=== PATIENT | male | born 1945 | race Caucasian/White ===

== ENCOUNTER 2017-12-07 11:33 | Inpatient (IN) ==
[2017-12-07] MEDS ORDERED: Acetaminophen 325 MG Tablet ONE (22:26)
[2017-12-08] MEDS ORDERED: Naloxone Inj 0.4 MG/ML Vial IV.PUSH PRN (00:01)
[2017-12-08] MEDS ORDERED: Acetaminophen 325 MG Tablet PO PRN (00:01)
[2017-12-08] MEDS: Piperacil/Tazo 3.375 GM Premix 50 ML IV.SIG SCH ×4 (02:45→22:11)
[2017-12-08 03:07] LABS: Troponin I 0.15 ng/mL (0.02-0.05)
[2017-12-08 03:19] LABS: CKMB Percent 0.1 % (0.0-4.0); Creatine Kinase MB 1.3 ng/mL (0.5-3.6)
[2017-12-08 06:01] LABS: Baso % (Auto) 0.2 % (0.0-2.0); Eos % (Auto) 0.8 % (0.0-4.0); Hematocrit 39.7 % (39.0-51.0); Hemoglobin 13.1 gm/dL (13.0-17.0); Lymph # (Auto) 0.7 th/mm3 (1.0-4.8); Lymph % (Auto) 11.8 % (9.0-44.0); Mean Corpuscular HGB Conc 33.1 % (32.0-36.0); Mean Corpuscular Volume 87.5 fL (80.0-100.0); Mono # (Auto) 0.6 th/mm3 (0.0-0.9); Mono % (Auto) 9.4 % (0.0-8.0); Neut # (Auto) 4.7 th/mm3 (1.8-7.7); Neut % (Auto) 77.8 % (16.0-70.0); Platelet Count 104 th/mm3 (150-450); Red Blood Count 4.54 mil/mm3 (4.50-5.90)
[2017-12-08 06:35] LABS: Carbon Dioxide 27.2 meq/L (21.0-32.0); Potassium 4.3 meq/L (3.5-5.1)
[2017-12-08] MEDS: Metoprolol Tartrate 25 MG Tablet PO SCH ×2 (08:37→22:11)
[2017-12-08] MEDS: Pantoprazole Sodium 20 MG DR Tablet PO SCH (08:38)
[2017-12-08] MEDS: Senna/Docusate Sodium 8.6/50 MG Tablet PO SCH ×2 (08:39→22:11)
--- NOTE | 2017-12-08 09:40 | XR ---
EXAM DATE: 12/08/2017 9:34 AM EDT AGE/SEX: 72 years / Male INDICATIONS: Previous fever. CLINICAL DATA: This is the patient's subsequent encounter. Patient reports that signs and symptoms h ave been present for 2 days and indicates a pain score of 0/10. MEDICAL/SURGICAL HISTORY: None. CABG. COMPARISON: No prior exams available for comparison. FINDINGS: Sternal wires from previous bypass are noted. Mild cardiomegaly. No infiltrate, pneumothorax or failu re. CONCLUSION: Mild compensated cardiomegaly, history of bypass. Electronically signed by: Zhou Smith MD 12/08/2017 9:39 AM EDT
--- NOTE | 2017-12-08 10:06 | P.HPIM ---
<Jolanta Luke E - Last Filed: 12/09/17 10:10> History of Present Illness Primary Care Physician: Joni Henley Chief Complaint: Fever History of Present Illness: Mr. Hartley is a 72 y/o male with CAD s/p CABG, BPH, HTN, Hyperlipidemia, GERD, and NATHAN. He presented to the ED in [place] on 12/07/17 with complaints of fever and low blood pressure. Patient was recently discharged from [facility] on 11/26 after having an episode of urinary urinary retention. He was seen by Dr. Suarez and had Rojas cath placed in the ED with noted dark urine output. He reportedly followed up with Dr. Medina and the Rojas was removed 3 days ago. Pt reports that he started having fevers at home on 12/06 with T-max of 103, with associated diaphoresis. He denies any chest pain, shortness of breath, headache , blurred vision, or any neurological symptoms. Denies any abdominal pain or diarrhea. Patient denies any dysuria, hematuria, increased urinary frequency, nausea or vomiting. In the ED in [place] the pt was noted to be hypotensive with tachycardia. He had an elevated lactic acid of 3.4. His WBC count was normal but left shift was noted. He had an elevated BUN/creatinine of 19/2 compared to previous labs on 11/25 where his BUN/creatinine was 26/1.4. Patient was given 2 L of IV fluid bolus, Vanco/Zosyn renal dose in the ED. His blood pressure responded to IV fluids without need for pressors. Blood cultures drawn in the ED at [place] with one out of four cultures growing gram negative rods. His preliminary urine culture is growing gram negative rods as well. - Diagnosis (1) Sepsis (2) Bacteremia (3) UTI (urinary tract infection) (4) Hypotension (5) HTN (hypertension) (6) CAD (coronary artery disease) (7) GERD (gastroesophageal reflux disease) (8) BPH (benign prostatic hyperplasia) Inpatient Certification: I certify that the inpatient services were ordered in accordance with Medicare regulations governing the order. This includes certification that hospital inpatient services are reasonable and necessary and in the case of services not specified as inpatient-only under 42 CFR 419.22(n), that they are appropriately provided as inpatient services in accordance to with the 2-midnight benchmark under 43 CFR 412.3(e) Estimated Total Length of Stay (Days): 3 Plans for Post Hospital Care: Not yet determined Review of Systems Constitutional: Reports fever(s), Reports night sweats Cardiovascular: Denies chest pain, Denies shortness of breath Respiratory: Denies cough, Denies shortness of breath with activity Gastrointestinal: Denies abdominal pain, Denies change in bowel habits, Denies nausea, Denies vomiting Genitourinary: Denies painful urination, Denies urinary frequency, Denies urinary urgency Musculoskeletal: Denies back pain, Denies neck pain PMF - History History Provided By: Patient - Medical History Medical History: Medical History (Last Updated 12/08/17 @ 10:01 by RAYSA Montes) BPH (benign prostatic hyperplasia) CAD (coronary artery disease) GERD (gastroesophageal reflux disease) HTN (hypertension) Hyperlipidemia Osteoarthritis - Surgical History Surgical History: Surgical History (Last Updated 12/08/17 @ 10:02 by RAYSA Montes) History of tonsillectomy Hx of knee surgery S/P CABG x 2 S/P TURP - Family History Family History: Family History (Last Updated 12/08/17 @ 10:03 by RAYSA Montes) Other CHF (congestive heart failure) - Tobacco History Second Hand Smoke Exposure: No Tobacco Use In Past 30 Days: No Smoking Status: Never smoker - Alcohol History How Often Do You Have a Drink Containing Alcohol: Monthly or less - Substance Use History Substance History: No History of Abuse Medications and Allergies Allergies Allergy/AdvReac Type Severity Reaction Status Date / Time No Known Allergies Allergy Unverified 12/07/17 11:58 Home Medications Medication Instructions Recorded Confirmed Type aspirin 81 mg PO DAILY 12/08/17 12/08/17 History clopidogrel [Plavix] 75 mg PO DAILY 12/08/17 12/08/17 History omeprazole magnesium [Prilosec OTC] 20 mg PO DAILY 12/08/17 12/08/17 History rosuvastatin [Crestor] 20 mg PO DAILY 12/08/17 12/08/17 History Active Medications: Active Medications Acetaminophen (Tylenol) 650 mg PO Q4H PRN PRN Reason: TEMP > 100.4 Al Hydroxide/Mg Hydroxide (Milk Of Magnesia Liq) 30 ml PO Q12H PRN PRN Reason: MILD CONSTIPATION Aspirin (Ecotrin) 81 mg PO DAILY [facility] Last Admin: 12/08/17 08:37 Dose: 81 mg Atorvastatin Calcium (Lipitor) 40 mg PO DAILY [facility] Last Admin: 12/08/17 08:39 Dose: 40 mg Clonidine HCl (Catapres) 0.2 mg PO Q6H PRN PRN Reason: SYS BP GREATER THAN 160 MMHG Clopidogrel Bisulfate (Plavix) 75 mg PO DAILY [facility] Last Admin: 12/08/17 08:37 Dose: 75 mg Piperacillin/Tazobactam/Dextrose (Zosyn 3.375 Gm Premix) 50 mls @ 100 mls/hr IV.SIG Q6H [facility] Last Admin: 12/08/17 08:36 Dose: 100 mls/hr Metoprolol Tartrate (Lopressor) 25 mg PO BID [facility] Last Admin: 12/08/17 08:37 Dose: 25 mg Naloxone HCl (Narcan Inj) 0.4 mg IV.PUSH UNSCH PRN PRN Reason: SEE LABEL COMMENTS Ondansetron HCl (Zofran Inj) 4 mg IV.PUSH Q6H PRN PRN Reason: NAUSEA OR VOMITING Pantoprazole Sodium (Protonix) 20 mg PO DAILY [facility] Last Admin: 12/08/17 08:38 Dose: 20 mg Senna/Docusate Sodium (Di-Colace) 1 tab PO BID [facility] Last Admin: 12/08/17 08:39 Dose: 1 tab Sodium Chloride (Ns Flush) 2 ml IV.FLUSH BID [facility] Last Admin: 12/08/17 08:40 Dose: Not Given Sodium Chloride (Ns Flush) 2 ml IV.FLUSH PRN PRN PRN Reason: FLUSH AFTER USING IV ACCESS Tamsulosin HCl (Flomax) 0.4 mg PO DAILY [facility] Last Admin: 12/08/17 08:37 Dose: 0.4 mg Exam Vital signs: Vital Signs 12/08/17 00:00 12/08/17 01:00 12/08/17 02:00 Temperature 99.7 F H Pulse Rate 86 78 77 Respiratory Rate 22 Blood Pressure 114/58 L Pulse Oximetry 97 12/08/17 03:00 12/08/17 04:00 12/08/17 05:00 Temperature 97.8 F Pulse Rate 64 68 64 Respiratory Rate 18 Blood Pressure 90/53 L Pulse Oximetry 97 12/08/17 06:00 12/08/17 06:34 Temperature Pulse Rate 60 60 Respiratory Rate Blood Pressure Pulse Oximetry Intake & Output 12/07/17 12/08/17 12/08/17 18:59 06:59 18:59 Intake Total 530 / 530 Output Total 600 / 600 Balance -70 / -70 Weight 110.8 kg Intake: IV 50 / 50 Zosyn 3.375 GM Premix 50 ML @ 50 / 50 100 mls/hr IV.SIG Q6H KENIA Rx#: [id number] Oral 480 / 480 Output: Urine 600 / 600 Narrative: GENERAL: NAD, AAOx3 SKIN: Warm and dry. HEAD: Normocephalic. No scleral icterus. No injection or drainage. NECK: Supple, trachea midline. No JVD or lymphadenopathy. CARDIOVASCULAR: Regular rate and rhythm without murmurs, gallops, or rubs. RESPIRATORY: Breath sounds equal bilaterally. No accessory muscle use. GASTROINTESTINAL: Abdomen soft, non-tender, nondistended. MUSCULOSKELETAL: No cyanosis, or edema. BACK: Nontender without obvious deformity. No CVA tenderness. Results - Labs CBC & Chem 7: 12/09/17 05:47 12/09/17 05:47 Labs: Short CBC 12/08/17 Range/Units 04:40 WBC 6.0 (4.0-11.0) th/mm3 Hgb 13.1 (13.0-17.0) gm/dL Hct 39.7 (39.0-51.0) % Plt Count 104 L (150-450) th/mm3 BMP 12/08/17 04:40 Sodium 141 Potassium 4.3 Chloride 107 Carbon Dioxide 27.2 BUN 23 H Creatinine 1.82 H Calcium 8.0 L Cardiac Enzymes 12/08/17 Range/Units 02:30 Total Creatine Kinase 958 H (39-308) U/L CK-MB (CK-2) 1.3 (0.5-3.6) ng/mL Troponin I 0.15 H (0.02-0.05) ng/mL - Imaging Impressions Chest X-Ray 12/08/17 00:00 CONCLUSION: Mild compensated cardiomegaly, history of bypass. Caprini VTE Risk Assessment Caprini VTE Risk Assessment: Moderate/High Risk (score >= 2) Caprini Risk Assessment Model: Point Value = 1 Point Value = 2 Point Value = 3 Point Value = 5 Age 41-60 Minor surgery BMI > 25 kg/m2 Swollen legs Varicose veins or History of unexplained or recurrent spontaneous Oral contraceptives or hormone replacement Sepsis (< 1 month) Serious lung disease, including pneumonia (< 1 month) Abnormal pulmonary function Acute myocardial infarction Congestive heart failure (< 1 month) History of inflammatory bowel disease Medical patient at bed rest Age 61-74 Arthroscopic surgery Major open surgery (> 45 min) Laparoscopic surgery (> 45 min) Malignancy Confined to bed (> 72 hours) Immobilizing plaster cast Central venous access Age >= 75 History of VTE Family history of VTE Factor V Leiden Prothrombin 26560R Lupus anticoagulant Anticardiolipin antibodies Elevated serum homocysteine Heparin-induced thrombocytopenia Other congenital or acquired thrombophilia Stroke (< 1 month) Elective arthroplasty Hip, pelvis, or leg fracture Acute spinal cord injury (< 1 month) Prophylaxis Regimen: Total Risk Factor Score Risk Level Prophylaxis Regimen 0-1 Low Early ambulation 2 Moderate Order ONE of the following: *Sequential Compression Device (SCD) *Heparin 5000 units SQ BID 3-4 Higher Order ONE of the following medications: *Heparin 5000 units SQ TID *Enoxaparin/Lovenox 40 mg SQ daily (WT < 150 kg, CrCl > 30 mL/min) *Enoxaparin/Lovenox 30 mg SQ daily (WT < 150 kg, CrCl > 10-29 mL/min) *Enoxaparin/Lovenox 30 mg SQ BID (WT < 150 kg, CrCl > 30 mL/min) AND/OR *Sequential Compression Device (SCD) 5 or more Highest Order ONE of the following medications: *Heparin 5000 units SQ TID (Preferred with Epidurals) *Enoxaparin/Lovenox 40 mg SQ daily (WT < 150 kg, CrCl > 30 mL/min) *Enoxaparin/Lovenox 30 mg SQ daily (WT < 150 kg, CrCl > 10-29 mL/min) *Enoxaparin/Lovenox 30 mg SQ BID (WT < 150 kg, CrCl > 30 mL/min) AND *Sequential Compression Device (SCD) Assessment and Plan - Assessment (1) Sepsis Code(s): A41.9 - Sepsis, unspecified organism Status: Acute Plan: - Pt is a 72 y/o male with CAD s/p CABG, BPH, HTN, Hyperlipidemia, GERD, and NATHAN. - He presented to the ED in [place] on 12/07/17 with complaints of fever and low blood pressure. Patient was recently discharged from [facility] on 11/26 after having an episode of urinary urinary retention. He was seen by Dr. Suarez and had Rojas cath placed in the ED with noted dark urine output. He reportedly followed up with Dr. Medina and the Rojas was removed 3 days ago. Pt reports that he started having fevers at home on 12/06 with T-max of 103, with associated diaphoresis. - In the ED in [place] the pt was noted to be hypotensive with tachycardia. - He had an elevated lactic acid of 3.4. - His WBC count was normal but left shift was noted. - He had an elevated BUN/creatinine of 19/2 compared to previous labs on 11/25 where his BUN/creatinine was 26/1.4. - Patient was given 2 L of IV fluid bolus, Vanco/Zosyn renal dose in the ED. His blood pressure responded to IV fluids without need for pressors. - Pt was transferred to [facility] [place] for further management - Blood cultures drawn in the ED at [place] with one out of four cultures growing gram negative rods. - His preliminary urine culture is growing gram negative rods as well. - Cont. IVF - Pt was continued on Zosyn - Await final urine and blood cultures - Supportive care - Further recs as the case develops - DVT prophylaxis with SCDs (2) Bacteremia Code(s): R78.81 - Bacteremia Status: Acute Plan: - See above (3) UTI (urinary tract infection) Code(s): N39.0 - Urinary tract infection, site not specified Status: Acute Plan: - See above (4) Hypotension Code(s): I95.9 - Hypotension, unspecified Status: Acute Plan: - Likely related to bacteremia and sepsis - Give gentle IVF - Monitor for any signs of volume overload - Hold home meds for now (5) HTN (hypertension) Code(s): I10 - Essential (primary) hypertension Status: Chronic Plan: - Hold home meds for hypotension (6) CAD (coronary artery disease) Code(s): I25.10 - Atherosclerotic heart disease of [place] coronary artery without angina pectoris Status: Chronic Plan: - Plavix and ASA resumed - Crestor resumed - Hold BB for now due to low BP - Pt had CE ordered in the ED which noted a mildly elevated troponin I of 0.12. This was trended, 0.19 -->0.15 -->0.10 - His total CK is noted to be elevated 278 -->510 -->958 --> 993 (7) GERD (gastroesophageal reflux disease) Code(s): K21.9 - Gastro-esophageal reflux disease without esophagitis Status: Chronic Plan: - PPI (8) BPH (benign prostatic hyperplasia) Code(s): N40.0 - Benign prostatic hyperplasia without lower urinary tract symptoms Status: Acute Plan: - Pt recently had issues with urinary retention which required a temporary rojas cath placement - This was reportedly removed 3 days ago - Pt follows with Dr. Medina <London Stauffer - Last Filed: 12/22/17 23:59> History of Present Illness Primary Care Physician: Joni Henley - Diagnosis (1) Sepsis (2) UTI (urinary tract infection) (3) Hypotension (4) HTN (hypertension) (5) CAD (coronary artery disease) (6) GERD (gastroesophageal reflux disease) (7) Bacteremia (8) BPH (benign prostatic hyperplasia) Inpatient Certification: I certify that the inpatient services were ordered in accordance with Medicare regulations governing the order. This includes certification that hospital inpatient services are reasonable and necessary and in the case of services not specified as inpatient-only under 42 CFR 419.22(n), that they are appropriately provided as inpatient services in accordance to with the 2-midnight benchmark under 43 CFR 412.3(e) [facility] - Medical History Medical History: Medical History (Last Updated 12/08/17 @ 10:01 by RAYSA Montes) BPH (benign prostatic hyperplasia) CAD (coronary artery disease) GERD (gastroesophageal reflux disease) HTN (hypertension) Hyperlipidemia Osteoarthritis - Surgical History Surgical History: Surgical History (Last Updated 12/08/17 @ 10:02 by RAYSA Montes) History of tonsillectomy Hx of knee surgery S/P CABG x 2 S/P TURP - Family History Family History: Family History (Last Updated 12/08/17 @ 10:03 by RAYSA Montes) Other CHF (congestive heart failure) Results - Labs CBC & Chem 7: 12/10/17 05:45 12/10/17 05:45 Caprini VTE Risk Assessment Caprini Risk Assessment Model: Point Value = 1 Point Value = 2 Point Value = 3 Point Value = 5 Age 41-60 Minor surgery BMI > 25 kg/m2 Swollen legs Varicose veins or History of unexplained or recurrent spontaneous Oral contraceptives or hormone replacement Sepsis (< 1 month) Serious lung disease, including pneumonia (< 1 month) Abnormal pulmonary function Acute myocardial infarction Congestive heart failure (< 1 month) History of inflammatory bowel disease Medical patient at bed rest Age 61-74 Arthroscopic surgery Major open surgery (> 45 min) Laparoscopic surgery (> 45 min) Malignancy Confined to bed (> 72 hours) Immobilizing plaster cast Central venous access Age >= 75 History of VTE Family history of VTE Factor V Leiden Prothrombin [id number] Lupus anticoagulant Anticardiolipin antibodies Elevated serum homocysteine Heparin-induced thrombocytopenia Other congenital or acquired thrombophilia Stroke (< 1 month) Elective arthroplasty Hip, pelvis, or leg fracture Acute spinal cord injury (< 1 month) Prophylaxis Regimen: Total Risk Factor Score Risk Level Prophylaxis Regimen 0-1 Low Early ambulation 2 Moderate Order ONE of the following: *Sequential Compression Device (SCD) *Heparin 5000 units SQ BID 3-4 Higher Order ONE of the following medications: *Heparin 5000 units SQ TID *Enoxaparin/Lovenox 40 mg SQ daily (WT < 150 kg, CrCl > 30 mL/min) *Enoxaparin/Lovenox 30 mg SQ daily (WT < 150 kg, CrCl > 10-29 mL/min) *Enoxaparin/Lovenox 30 mg SQ BID (WT < 150 kg, CrCl > 30 mL/min) AND/OR *Sequential Compression Device (SCD) 5 or more Highest Order ONE of the following medications: *Heparin 5000 units SQ TID (Preferred with Epidurals) *Enoxaparin/Lovenox 40 mg SQ daily (WT < 150 kg, CrCl > 30 mL/min) *Enoxaparin/Lovenox 30 mg SQ daily (WT < 150 kg, CrCl > 10-29 mL/min) *Enoxaparin/Lovenox 30 mg SQ BID (WT < 150 kg, CrCl > 30 mL/min) AND *Sequential Compression Device (SCD) Assessment and Plan - Assessment (1) Sepsis Code(s): A41.9 - Sepsis, unspecified organism Status: Acute (2) UTI (urinary tract infection) Code(s): N39.0 - Urinary tract infection, site not specified Status: Acute (3) Hypotension Code(s): I95.9 - Hypotension, unspecified Status: Acute (4) HTN (hypertension) Code(s): I10 - Essential (primary) hypertension Status: Chronic (5) CAD (coronary artery disease) Code(s): I25.10 - Atherosclerotic heart disease of [place] coronary artery without angina pectoris Status: Chronic (6) GERD (gastroesophageal reflux disease) Code(s): K21.9 - Gastro-esophageal reflux disease without esophagitis Status: Chronic (7) Bacteremia Code(s): R78.81 - Bacteremia Status: Acute (8) BPH (benign prostatic hyperplasia) Code(s): N40.0 - Benign prostatic hyperplasia without lower urinary tract symptoms Status: Acute - Attending Attestation Patient examined. Assessment and plan formulated with Jolanta Luke PA-C. I agree with the above.
[2017-12-08 10:24] LABS: Troponin I 0.1 ng/mL (0.02-0.05)
[2017-12-08 10:56] LABS: CKMB Percent 0.1 % (0.0-4.0); Creatine Kinase MB 1.4 ng/mL (0.5-3.6)
[2017-12-08] MEDS ORDERED: Bisacodyl 10 MG Supp RECTAL PRN (12:15)
[2017-12-08] MEDS: Sod Chloride 0.9% Inj 1,000 ML IV.CONT SCH ×2 (14:27→22:13)
--- NOTE | 2017-12-09 00:14 | ECG ---
Date Performed: 12/08/2017 Time Performed: 00:07:38 PTAGE: 72 years EKG: Sinus rhythm Inferior infarct - age undetermined Lateral T wave changes are nonspecific Abnormal ECG Since the PREVIOUS TRACING , no significant change noted DOCTOR: Adarsh Herrera Interpretating Date/Time 12/09/2017 00:12:07
[2017-12-09] MEDS: Piperacil/Tazo 3.375 GM Premix 50 ML IV.SIG SCH ×2 (04:18→09:00)
[2017-12-09 07:01] LABS: Baso % (Auto) 0.3 % (0.0-2.0); Eos # (Auto) 0.1 th/mm3 (0.0-0.4); Lymph # (Auto) 1.4 th/mm3 (1.0-4.8); Lymph % (Auto) 30.6 % (9.0-44.0); Mean Corpuscular HGB Conc 33.2 % (32.0-36.0); Mean Corpuscular Hemoglobin 28.9 pg (27.0-34.0); Mean Platelet Volume 10.9 fL (7.0-11.0); Mono # (Auto) 0.5 th/mm3 (0.0-0.9); Mono % (Auto) 11.1 % (0.0-8.0); Neut # (Auto) 2.6 th/mm3 (1.8-7.7); Platelet Count 104 th/mm3 (150-450); Red Blood Count 4.49 mil/mm3 (4.50-5.90); Red Cell Distribution Width 14.9 % (11.6-17.2); White Blood Count 4.7 th/mm3 (4.0-11.0)
[2017-12-09 07:41] LABS: Calcium 8.3 mg/dL (8.5-10.1); Potassium 4.3 meq/L (3.5-5.1)
[2017-12-09 08:02] LABS: CKMB Percent 0.1 % (0.0-4.0); Creatine Kinase MB 0.9 ng/mL (0.5-3.6)
--- NOTE | 2017-12-09 08:38 | P.PNIM ---
Subjective Interval history: Pt is overall feeling better Pt has been afebrile overnight but reports that he did wake up with some cold sweats last night He is eating and drinking without difficulty Pt HR overnight was in the 40's, sinus darryl and BP is low this morning. He reports that his BP typically is less than 120 systolically Physical Exam Vital signs: Vital Signs 12/08/17 11:00 12/08/17 12:00 12/08/17 13:00 Temperature Pulse Rate 61 54 L 69 Respiratory Rate Blood Pressure Pulse Oximetry 12/08/17 14:00 12/08/17 15:00 12/08/17 16:00 Temperature 99.0 F Pulse Rate 60 58 L 61 Respiratory Rate 16 Blood Pressure 123/69 Pulse Oximetry 96 12/08/17 17:00 12/08/17 18:00 12/08/17 20:00 Temperature 98.2 F Pulse Rate 67 67 63 Respiratory Rate 20 Blood Pressure 135/67 Pulse Oximetry 95 12/09/17 00:00 12/09/17 04:00 Temperature 98.6 F 97.5 F L Pulse Rate 55 L 58 L Respiratory Rate 20 18 Blood Pressure 129/71 123/53 L Pulse Oximetry 96 Intake & Output 12/08/17 12/09/17 12/09/17 18:59 06:59 18:59 Intake Total 740 / 740 50 / 50 Output Total 950 / 950 Balance -210 / -210 50 / 50 Weight 110.8 kg Intake: IV 100 / 100 50 / 50 Zosyn 3.375 GM Premix 50 ML @ 100 / 100 50 / 50 100 mls/hr IV.SIG Q6H KENIA Rx#: [id number] Oral 640 / 640 Output: Urine 950 / 950 Other: # Bowel Movements 1 Narrative: General: NAD, AAOx3 Chest: CTA Cardiac: Regular, darryl Abd: +BS, soft ND/NT Ext: No edema Results - Labs CBC & Chem 7: 12/10/17 05:45 12/10/17 05:45 Laboratory Results - last 24 hr 12/08/17 12/09/17 12/09/17 07:40 05:47 05:47 WBC 4.7 RBC 4.49 L Hgb 13.0 Hct 39.0 MCV 87.0 MCH 28.9 MCHC 33.2 RDW 14.9 Plt Count 104 L MPV 10.9 Neut % (Auto) 55.0 Lymph % (Auto) 30.6 [place] % (Auto) 11.1 H Eos % (Auto) 3.0 Baso % (Auto) 0.3 Neut # (Auto) 2.6 Lymph # (Auto) 1.4 [place] # (Auto) 0.5 Eos # (Auto) 0.1 Baso # (Auto) 0.0 WBC Differential . Differential Comment Auto diff final Sodium 142 Potassium 4.3 Chloride 108 H Carbon Dioxide 26.0 Anion Gap 8 BUN 18 Creatinine 1.51 H Estimated GFR 45 L Random Glucose 88 Calcium 8.3 L Total Creatine Kinase 993 H 757 H CK-MB (CK-2) 1.4 0.9 CK-MB (CK-2) % 0.1 0.1 Troponin I 0.10 H - Imaging Impressions Chest X-Ray 12/08/17 00:00 CONCLUSION: Mild compensated cardiomegaly, history of bypass. Assessment and Plan - Assessment (1) Sepsis Code(s): A41.9 - Sepsis, unspecified organism Status: Acute Plan: - Pt is a 72 y/o male with CAD s/p CABG, BPH, HTN, Hyperlipidemia, GERD, and NATHAN. - He presented to the ED in [place] on 12/07/17 with complaints of fever and low blood pressure. Patient was recently discharged from [facility] on 11/26 after having an episode of urinary urinary retention. He was seen by Dr. Suarez and had Egan cath placed in the ED with noted dark urine output. He reportedly followed up with Dr. Medina and the Egan was removed 3 days ago. Pt reports that he started having fevers at home on 12/06 with T-max of 103, with associated diaphoresis. - In the ED in [place] the pt was noted to be hypotensive with tachycardia. - He had an elevated lactic acid of 3.4. - His WBC count was normal but left shift was noted. - He had an elevated BUN/creatinine of 19/2 compared to previous labs on 11/25 where his BUN/creatinine was 26/1.4. - Patient was given 2 L of IV fluid bolus, Vanco/Zosyn renal dose in the ED. His blood pressure responded to IV fluids without need for pressors. - [place] [facility] [place] - Blood cultures drawn in the ED at [place] with one out of four cultures growing gram negative rods. - Urine culture is growing Klebsiella pneumoniae, sensitivities reviewed - Cont. IVF - Stop Zosyn on 12/09 and start Cipro BID - Await final blood cultures - Renal function is improving, continue to monitor - Supportive care - DVT prophylaxis with SCDs (2) UTI (urinary tract infection) Code(s): N39.0 - Urinary tract infection, site not specified Status: Acute Plan: - See above (3) Hypotension Code(s): I95.9 - Hypotension, unspecified Status: Acute Plan: - Likely related to bacteremia and sepsis - Give gentle IVF - Monitor for any signs of volume overload - Hold Metoprolol as BP and HR are low today (4) HTN (hypertension) Code(s): I10 - Essential (primary) hypertension Status: Chronic Plan: - Hold Metoprolol for hypotension (5) CAD (coronary artery disease) Code(s): I25.10 - Atherosclerotic heart disease of [place] coronary artery without angina pectoris Status: Chronic Plan: - Plavix and ASA resumed - Hold crestor for now due to elevated CK - Hold BB for now due to low BP and low HR - Pt had CE ordered in the ED which noted a mildly elevated troponin I of 0.12. This was trended, 0.19 -->0.15 -->0.10 - His total CK is noted to be elevated 278 -->510 -->958 --> 993, now trending down to 773 (12/09) (6) GERD (gastroesophageal reflux disease) Code(s): K21.9 - Gastro-esophageal reflux disease without esophagitis Status: Chronic Plan: - Cont. PPI (7) Bacteremia Code(s): R78.81 - Bacteremia Status: Acute Plan: - See above (8) BPH (benign prostatic hyperplasia) Code(s): N40.0 - Benign prostatic hyperplasia without lower urinary tract symptoms Status: Acute Plan: - Pt recently had issues with urinary retention which required a temporary Egan cath placement - This was reportedly removed on 12/05 - Pt follows with Dr. Medina - Plan Patient examined. Assessment and plan formulated with Jolanta Luke PA-C. I agree with the above.
[2017-12-09] MEDS: Senna/Docusate Sodium 8.6/50 MG Tablet PO SCH ×2 (09:03→20:25)
[2017-12-09] MEDS: Pantoprazole Sodium 20 MG DR Tablet PO SCH (09:03)
--- NOTE | 2017-12-09 11:27 | ECG ---
Date Performed: 12/08/2017 Time Performed: 15:28:26 PTAGE: 72 years EKG: Sinus rhythm Normal ECG PREVIOUS TRACING : 12/08/2017 00.07 Since the previous tracing, no significant change noted DOCTOR: Román Kirby Interpretating Date/Time 12/09/2017 11:25:22
[2017-12-09] MEDS: Ciprofloxacin 250 MG Tablet PO SCH ×2 (11:28→20:25)
--- NOTE | 2017-12-09 11:39 | P.DCO ---
- Physical Therapy Order: Evaluate and treat, Improve ambulation, Strength and gait training - Home Health Nursing Order: Medical education, Signs/symptoms of disease process, Nursing assessment with vital signs Instructions: - The metoprolol will be held at discharge and monitor his HR and BP at home - If his HR elevates over 90 and/or his systolic BP goes above 140, pt can resume his Metoprolol. - Certification I have seen patient Jose Miguel Hartley on 12/09/17. My clinical findings support the need for the requested home health care services because: Deconditioned with increased weakness, Infection with risk of complications I certify that my clinical findings support that this patient is homebound because: Unsteady gait/balance
[2017-12-09] MEDS: Sod Chloride 0.9% Inj 1,000 ML IV.CONT SCH ×3 (12:30→23:29)
[2017-12-10 06:55] LABS: Calcium 8.6 mg/dL (8.5-10.1); Carbon Dioxide 26.2 meq/L (21.0-32.0); Potassium 4.5 meq/L (3.5-5.1)
[2017-12-10 07:14] LABS: Baso % (Auto) 0.3 % (0.0-2.0); Eos # (Auto) 0.1 th/mm3 (0.0-0.4); Eos % (Auto) 3.6 % (0.0-4.0); Hematocrit 39.3 % (39.0-51.0); Hemoglobin 13.1 gm/dL (13.0-17.0); Lymph # (Auto) 1.4 th/mm3 (1.0-4.8); Lymph % (Auto) 36.3 % (9.0-44.0); Mean Corpuscular HGB Conc 33.4 % (32.0-36.0); Mean Corpuscular Volume 86.6 fL (80.0-100.0); Mean Platelet Volume 11.1 fL (7.0-11.0); Mono # (Auto) 0.5 th/mm3 (0.0-0.9); Mono % (Auto) 11.5 % (0.0-8.0); Neut # (Auto) 1.9 th/mm3 (1.8-7.7); Neut % (Auto) 48.3 % (16.0-70.0); Platelet Count 117 th/mm3 (150-450); Red Blood Count 4.53 mil/mm3 (4.50-5.90); Red Cell Distribution Width 14.8 % (11.6-17.2); White Blood Count 3.9 th/mm3 (4.0-11.0)
[2017-12-10] MEDS: Pantoprazole Sodium 20 MG DR Tablet PO SCH (09:25)
[2017-12-10] MEDS: Ciprofloxacin 250 MG Tablet PO SCH ×2 (09:25→18:00)
[2017-12-10] MEDS: Senna/Docusate Sodium 8.6/50 MG Tablet PO SCH (09:27)
[2017-12-10] MEDS: Sod Chloride 0.9% Inj 1,000 ML IV.CONT SCH (11:44)
--- NOTE | 2017-12-10 15:29 | P.PNIM ---
Subjective Interval history: HR is improved today into the 60-70's He is ambulating in the room without difficulty Blood culture is also positive for Klebsiella Physical Exam Vital signs: Vital Signs 12/09/17 16:00 12/09/17 17:00 12/09/17 18:00 Temperature 97.6 F Pulse Rate 60 55 L 59 L Respiratory Rate 16 Blood Pressure 147/71 H Pulse Oximetry 96 12/09/17 19:00 12/09/17 20:00 12/09/17 20:07 Temperature 98.3 F Pulse Rate 56 L 70 53 L Respiratory Rate 18 Blood Pressure 137/76 Pulse Oximetry 98 12/09/17 21:00 12/09/17 22:00 12/09/17 23:00 Temperature Pulse Rate 58 L 60 60 Respiratory Rate Blood Pressure Pulse Oximetry 12/09/17 23:32 12/10/17 00:00 12/10/17 01:00 Temperature 97.8 F Pulse Rate 60 58 L 61 Respiratory Rate 18 Blood Pressure 150/77 H Pulse Oximetry 95 12/10/17 02:00 12/10/17 03:00 12/10/17 03:48 Temperature 98.5 F Pulse Rate 69 58 L 72 Respiratory Rate 19 Blood Pressure 119/67 Pulse Oximetry 96 12/10/17 04:00 12/10/17 05:00 12/10/17 06:00 Temperature Pulse Rate 43 L 68 73 Respiratory Rate Blood Pressure Pulse Oximetry 12/10/17 07:00 12/10/17 08:00 12/10/17 09:00 Temperature 97.8 F Pulse Rate 71 54 L 64 Respiratory Rate 18 Blood Pressure 130/66 Pulse Oximetry 94 L 12/10/17 10:00 12/10/17 11:00 12/10/17 12:00 Temperature 97.7 F Pulse Rate 66 67 69 Respiratory Rate 18 Blood Pressure 144/71 H Pulse Oximetry 97 12/10/17 13:00 12/10/17 14:00 Temperature Pulse Rate 80 77 Respiratory Rate Blood Pressure Pulse Oximetry Intake & Output 12/09/17 12/10/17 12/10/17 18:59 06:59 18:59 Intake Total 1720 / 1720 1500 / 1500 1000 / 1000 Output Total 800 / 800 775 / 775 Balance 920 / 920 725 / 725 1000 / 1000 Weight 110.6 kg Intake: IV 1000 / 1000 1000 / 1000 1000 / 1000 NS Inj 1,000 ML @ 84 mls/hr IV. 1000 / 1000 1000 / 1000 1000 / 1000 CONT .[id number] KENIA Rx#:[id number] Oral 720 / 720 500 / 500 Output: Urine 800 / 800 775 / 775 Other: # Voids 4 Date of Last Bowel Movement 12/09/17 12/08/17 Narrative: General: NAD, AAOx3 Chest: CTA Cardiac: Regular Abd: +BS, soft ND/NT Ext: No edema Results - Labs CBC & Chem 7: 12/10/17 05:45 12/10/17 05:45 Laboratory Results - last 24 hr 12/10/17 12/10/17 05:45 05:45 WBC 3.9 L RBC 4.53 Hgb 13.1 Hct 39.3 MCV 86.6 MCH 29.0 MCHC 33.4 RDW 14.8 Plt Count 117 L MPV 11.1 H Neut % (Auto) 48.3 Lymph % (Auto) 36.3 [place] % (Auto) 11.5 H Eos % (Auto) 3.6 Baso % (Auto) 0.3 Neut # (Auto) 1.9 Lymph # (Auto) 1.4 [place] # (Auto) 0.5 Eos # (Auto) 0.1 Baso # (Auto) 0.0 WBC Differential . Differential Comment Auto diff final Sodium 141 Potassium 4.5 Chloride 107 Carbon Dioxide 26.2 Anion Gap 8 BUN 17 Creatinine 1.39 H Estimated GFR 50 L Random Glucose 94 Calcium 8.6 Assessment and Plan - Assessment (1) Sepsis Code(s): A41.9 - Sepsis, unspecified organism Status: Acute Plan: - Pt is a 72 y/o male with CAD s/p CABG, BPH, HTN, Hyperlipidemia, GERD, and NATHAN. - He presented to the ED in [place] on 12/07/17 with complaints of fever and low blood pressure. Patient was recently discharged from [facility] on 11/26 after having an episode of urinary urinary retention. He was seen by Dr. Suarez and had Egan cath placed in the ED with noted dark urine output. He reportedly followed up with Dr. Medina and the Egan was removed 3 days ago. Pt reports that he started having fevers at home on 12/06 with T-max of 103, with associated diaphoresis. - In the ED in [place] the pt was noted to be hypotensive with tachycardia. - He had an elevated lactic acid of 3.4. - His WBC count was normal but left shift was noted. - He had an elevated BUN/creatinine of 19/2 compared to previous labs on 11/25 where his BUN/creatinine was 26/1.4. - Patient was given 2 L of IV fluid bolus, Vanco/Zosyn renal dose in the ED. His blood pressure responded to IV fluids without need for pressors. - [place] [facility] [place] - Urine culture is growing Klebsiella pneumoniae, sensitivities reviewed - Stop Zosyn on 12/09 and start Cipro BID - Blood cultures from the [place] ER with one out of four growing Klebsiella as well - Renal function is improving, baseline Cr around 1.2-1.4 per outpt records - Pt stable for discharge to home today - He will continue on Cipro 250mg po BID x 7 more days - He will need to followup with his PCP, Dr. Henley, in 1 week - Pt is scheduled to see Dr. Medina, for a cystoscope on 12/18/17 (2) UTI (urinary tract infection) Code(s): N39.0 - Urinary tract infection, site not specified Status: Acute Plan: - See above (3) Hypotension Code(s): I95.9 - Hypotension, unspecified Status: Acute Plan: - Likely related to bacteremia and sepsis - Improved with gentle IVF - Monitor for any signs of volume overload - Hold Metoprolol as BP and HR are low/normal - The metoprolol will be held at discharge and pt is to monitor his HR and BP at home - If his HR elevates over 90 and/or his systolic BP goes above 140, pt can resume his Metoprolol. (4) HTN (hypertension) Code(s): I10 - Essential (primary) hypertension Status: Chronic Plan: - Hold Metoprolol for hypotension - See above (5) CAD (coronary artery disease) Code(s): I25.10 - Atherosclerotic heart disease of [place] coronary artery without angina pectoris Status: Chronic Plan: - Plavix and ASA resumed - Hold crestor for now due to elevated CK - Hold BB for now due to low BP and low HR - Pt had CE ordered in the ED which noted a mildly elevated troponin I of 0.12. This was trended, 0.19 -->0.15 -->0.10 - His total CK is noted to be elevated 278 -->510 -->958 --> 993, now trending down to 773 (12/09) (6) GERD (gastroesophageal reflux disease) Code(s): K21.9 - Gastro-esophageal reflux disease without esophagitis Status: Chronic Plan: - Cont. PPI (7) Bacteremia Code(s): R78.81 - Bacteremia Status: Acute Plan: - See above (8) BPH (benign prostatic hyperplasia) Code(s): N40.0 - Benign prostatic hyperplasia without lower urinary tract symptoms Status: Acute Plan: - Pt recently had issues with urinary retention which required a temporary Egan cath placement - This was reportedly removed on 12/05 - Pt follows with Dr. Medina and has a cystoscopy scheduled for 12/18/17 - Attending Attestation Patient examined. Assessment and plan formulated with Jolanta Luke PA-C. I agree with the above.
--- NOTE | 2017-12-10 16:59 | P.DS ---
<Jolanta Luke E - Last Filed: 12/10/17 16:53> Date of admission: 12/07/17 18:25 Primary care physician: Joni Henley Brief History from admission: Mr. Hartley is a 72 y/o male with CAD s/p CABG, BPH, HTN, Hyperlipidemia, GERD, and NATHAN. He presented to the ED in [place] on 12/07/17 with complaints of fever and low blood pressure. Patient was recently discharged from [facility] on 11/26 after having an episode of urinary urinary retention. He was seen by Dr. Suarez and had Egan cath placed in the ED with noted dark urine output. He reportedly followed up with Dr. Medina and the Egan was removed 3 days ago. Pt reports that he started having fevers at home on 12/06 with T-max of 103, with associated diaphoresis. He denies any chest pain, shortness of breath, headache , blurred vision, or any neurological symptoms. Denies any abdominal pain or diarrhea. Patient denies any dysuria, hematuria, increased urinary frequency, nausea or vomiting. In the ED in [place] the pt was noted to be hypotensive with tachycardia. He had an elevated lactic acid of 3.4. His WBC count was normal but left shift was noted. He had an elevated BUN/creatinine of 19/2 compared to previous labs on 11/25 where his BUN/creatinine was 26/1.4. Patient was given 2 L of IV fluid bolus, Vanco/Zosyn renal dose in the ED. His blood pressure responded to IV fluids without need for pressors. Blood cultures drawn in the ED at [place] with one out of four cultures growing gram negative rods. His preliminary urine culture is growing gram negative rods as well. DS: Diagnosis - Discharge Diagnosis (1) Sepsis Status: Acute (2) UTI (urinary tract infection) Status: Acute (3) Hypotension Status: Acute (4) HTN (hypertension) Status: Chronic (5) CAD (coronary artery disease) Status: Chronic (6) GERD (gastroesophageal reflux disease) Status: Chronic (7) Bacteremia Status: Acute (8) BPH (benign prostatic hyperplasia) Status: Acute DS: Summary Hospital Course: Sepsis Bacteremia UTI - Pt is a 72 y/o male with CAD s/p CABG, BPH, HTN, Hyperlipidemia, GERD, and NATHAN. He presented to the ED in [place] on 12/07/17 with complaints of fever and low blood pressure. Patient was recently discharged from [facility] on after having an episode of urinary urinary retention. He was seen by Dr. Suarez and had Egan cath placed in the ED with noted dark urine output. He reportedly followed up with Dr. Medina and the Egan was removed 3 days ago. Pt reports that he started having fevers at home on 12/06 with T-max of 103, with associated diaphoresis. In the ED in [place] the pt was noted to be hypotensive with tachycardia. - He had an elevated lactic acid of 3.4. His WBC count was normal but left shift was noted. He had an elevated BUN/creatinine of 19/2 compared to previous labs on 11/25 where his BUN/creatinine was 26/1.4. Patient was given 2 L of IV fluid bolus, Vanco/Zosyn renal dose in the ED. His blood pressure responded to IV fluids without need for pressors. Pt was transferred to [facility] [place] for further management. Urine culture grew out Klebsiella pneumoniae, sensitivities reviewed. Zosyn was stopped on 12/09 and start Cipro BID. Blood cultures from the [place] ER with one out of four growing Klebsiella as well. Renal function is improving, baseline Cr around 1.2-1.4 per outpt records. He will continue on Cipro 250mg po BID x 11 more days for a total of 2 weeks of antibiotics. He will need to followup with his PCP, Dr. Henley, in 1 week Pt is scheduled to see Dr. Medina, for a cystoscope on 12/18/17 Hypotension Hypertension - Likely related to bacteremia and sepsis. Improved with gentle IVF. Pts Metoprolol was held as BP and HR were low/normal. HR In the 40's overnight on 12/09. The metoprolol will be held at discharge and pt is to monitor his HR and BP at home. If his HR elevates over 90 and/or his systolic BP goes above 140, pt can resume his Metoprolol. CAD (coronary artery disease) - Plavix and ASA resumed. Crestor was held at admission due to elevated CK. BB was held due to low BP and low HR. Pt had CE ordered in the ED which noted a mildly elevated troponin I of 0.12. This was trended, 0.19 -->0.15 -->0.10. His total CK is noted to be elevated 278 -->510 -->958 --> 993, now trending down to 773 (12/09) Resume Crestor at discharge. GERD (gastroesophageal reflux disease) - Cont. PPI BPH (benign prostatic hyperplasia) - Pt recently had issues with urinary retention which required a temporary Egan cath placement. This was reportedly removed on 12/05. Pt follows with Dr. Medina and has a cystoscopy scheduled for 12/18/17 - Time Spent with Patient Total time spent providing and/or coordinating discharge services: Exam Vital signs: Vital Signs 12/09/17 17:00 12/09/17 18:00 12/09/17 19:00 Temperature Pulse Rate 55 L 59 L 56 L Respiratory Rate Blood Pressure Pulse Oximetry 12/09/17 20:00 12/09/17 20:07 12/09/17 21:00 Temperature 98.3 F Pulse Rate 70 53 L 58 L Respiratory Rate 18 Blood Pressure 137/76 Pulse Oximetry 98 12/09/17 22:00 12/09/17 23:00 12/09/17 23:32 Temperature 97.8 F Pulse Rate 60 60 60 Respiratory Rate 18 Blood Pressure 150/77 H Pulse Oximetry 95 12/10/17 00:00 12/10/17 01:00 12/10/17 02:00 Temperature Pulse Rate 58 L 61 69 Respiratory Rate Blood Pressure Pulse Oximetry 12/10/17 03:00 12/10/17 03:48 12/10/17 04:00 Temperature 98.5 F Pulse Rate 58 L 72 43 L Respiratory Rate 19 Blood Pressure 119/67 Pulse Oximetry 96 12/10/17 05:00 12/10/17 06:00 12/10/17 07:00 Temperature 97.8 F Pulse Rate 68 73 71 Respiratory Rate 18 Blood Pressure 130/66 Pulse Oximetry 94 L 12/10/17 08:00 12/10/17 09:00 12/10/17 10:00 Temperature Pulse Rate 54 L 64 66 Respiratory Rate Blood Pressure Pulse Oximetry 12/10/17 11:00 12/10/17 12:00 12/10/17 13:00 Temperature 97.7 F Pulse Rate 67 69 80 Respiratory Rate 18 Blood Pressure 144/71 H Pulse Oximetry 97 12/10/17 14:00 12/10/17 15:00 12/10/17 16:00 Temperature 97.9 F Pulse Rate 77 57 L 64 Respiratory Rate 18 Blood Pressure 146/77 H Pulse Oximetry 98 Intake & Output 12/09/17 12/10/17 12/10/17 18:59 06:59 18:59 Intake Total 1720 / 1720 1500 / 1500 1000 / 1000 Output Total 800 / 800 775 / 775 Balance 920 / 920 725 / 725 1000 / 1000 Weight 110.6 kg Intake: IV 1000 / 1000 1000 / 1000 1000 / 1000 NS Inj 1,000 ML @ 84 mls/hr IV. 1000 / 1000 1000 / 1000 1000 / 1000 CONT .[id number] KENIA Rx#:[id number] Oral 720 / 720 500 / 500 Output: Urine 800 / 800 775 / 775 Other: # Voids 4 Date of Last Bowel Movement 12/09/17 12/08/17 Narrative: General; NAD, AAOx3 Chest: CTA Cardiac: Regular Abd: +BS, soft ND/NT Ext: No edema Results Labs on day of discharge: Labs from last 24 hours 12/10/17 12/10/17 05:45 05:45 WBC 3.9 L RBC 4.53 Hgb 13.1 Hct 39.3 MCV 86.6 MCH 29.0 MCHC 33.4 RDW 14.8 Plt Count 117 L MPV 11.1 H Neut % (Auto) 48.3 Lymph % (Auto) 36.3 [place] % (Auto) 11.5 H Eos % (Auto) 3.6 Baso % (Auto) 0.3 Neut # (Auto) 1.9 Lymph # (Auto) 1.4 [place] # (Auto) 0.5 Eos # (Auto) 0.1 Baso # (Auto) 0.0 WBC Differential . Differential Comment Auto diff final Sodium 141 Potassium 4.5 Chloride 107 Carbon Dioxide 26.2 Anion Gap 8 BUN 17 Creatinine 1.39 H Estimated GFR 50 L Random Glucose 94 Calcium 8.6 - Impressions ITS Impressions Chest X-Ray 12/08/17 00:00 CONCLUSION: Mild compensated cardiomegaly, history of bypass. <London Stauffer - Last Filed: 12/23/17 00:02> Date of admission: 12/07/17 18:25 Primary care physician: Joni Henley DS: Diagnosis - Discharge Diagnosis (1) Sepsis Status: Acute (2) UTI (urinary tract infection) Status: Acute (3) Hypotension Status: Acute (4) HTN (hypertension) Status: Chronic (5) CAD (coronary artery disease) Status: Chronic (6) GERD (gastroesophageal reflux disease) Status: Chronic (7) Bacteremia Status: Acute (8) BPH (benign prostatic hyperplasia) Status: Acute DS: Summary Hospital Course: Patient examined. Assessment and plan formulated with Jolanta Luke PA-C. I agree with the above. - Time Spent with Patient Total time spent providing and/or coordinating discharge services: Results Procedures completed during hospitalization: n/a - Impressions ITS Impressions Chest X-Ray 12/08/17 00:00 CONCLUSION: Mild compensated cardiomegaly, history of bypass. Discharge Plan - Discharge Order Discharge Orders: Discharge Order (Routine); Ordered 12/10/17 Ordered By: Jolanta Luke - Discharge Details Anticipated Discharge Date: 12/10/17 - Physicians Team Primary Care Provider: Joni Henley Attending Provider: London Stauffer Other Providers: Agata Amaya,Agency - Rxs /Orders / Referrals /Forms Prescriptions: Continue aspirin 81 mg Tablet,Chewable 81 mg PO DAILY clopidogrel [Plavix] 75 mg Tablet 75 mg PO DAILY omeprazole magnesium [Prilosec OTC] 20 mg Tablet,Delayed Release (Dr/Ec) 20 mg PO DAILY rosuvastatin [Crestor] 20 mg Tablet 20 mg PO DAILY Discontinued metoprolol tartrate 25 mg Tablet 25 mg PO BID naproxen 250 mg Tablet 250 mg PO BID PRN (Reason: Pain) Referrals: Joni Henley MD [Primary Care Provider] - See Instructions Silvio Medina MD [Physician] - 12/18/17 - Discharge Instructions Additional Instructions: Home Health Care to be provided by: [facility] [phone]
== END 2017-12-10 18:30 | disposition home health service (06) ==
LOC: HCIS 11:33 → INTOOBSV 18:25 → HCIS 18:25
PROVIDERS: ADMIT Hospitalist; ATTEND Hospitalist